=== PATIENT | female | born 1970 | race Caucasian/White ===

== ENCOUNTER 2020-12-05 10:08 | Outpatient (REF) | payer MEDICAID, SELFPAY ==
--- NOTE | ~2020-12-05 | MM_ITS ---
EXAMINATION: MM SCREENING DIGITAL BREAST TOMOSYNTHESIS, BILATERAL CLINICAL INFORMATION: Screening. Asymptomatic. The lifetime risk of breast cancer based on the Tyrer-Cuzick Model is 7%. COMPARISON: Mammography: 08/06/2018 TECHNIQUE: Digital breast tomosynthesis is performed in both the craniocaudal and mediolateral oblique views along with computer-aided detection (CAD). Synthesized 2D images are generated from the tomosynthesis. Additional left CC view is provided. FINDINGS: There are scattered areas of fibroglandular density (ACR BI-RADS breast composition Category b). Breast tissue composition borders on predominantly fatty. Background stromal markings are stable. There is biopsy clip marker again noted mid upper outer right breast. The axilla and skin contours are unremarkable. No significant changes. MM/MM tomosynthesis screening BI IMPRESSION: No mammographic evidence of malignancy. ASSESSMENT: BI-RADS 1: Negative RECOMMENDATION: Routine annual mammography screening. This patient's information was entered into a reminder system with a target due date for their next mammogram.
== END 2020-12-05 10:09 | disposition home or self-care (01) ==
LOC: HO.MAMMO 10:08
PROVIDERS: Visit Provider Internal Medicine
DX: Z12.31 Encounter for screening mammogram for malignant neoplasm of breast (principal)
CPT/HCPCS: 77063; 77067

== ENCOUNTER 2021-03-20 07:16 | Outpatient (REF) | payer MEDICAID, SELFPAY ==
--- NOTE | ~2021-03-20 | XR_ITS ---
EXAMINATION: XR WRIST, LEFT CLINICAL INFORMATION: Left wrist pain. COMPARISON: Left hand and wrist radiographs dated 07/09/2019. TECHNIQUE: PA, lateral, and oblique views of the left wrist. FINDINGS: The bones and soft tissues are normal. No fracture. Alignment is anatomic with normal joint spaces. No erosions or abnormal soft tissue calcifications. XR/XR wrist LT min 3V IMPRESSION: Unremarkable examination.
== END 2021-03-20 07:17 | disposition home or self-care (01) ==
LOC: HO.HOSX 07:16
PROVIDERS: Visit Provider Physician Assistant
DX: G56.03 Carpal tunnel syndrome, bilateral upper limbs (principal)
CPT/HCPCS: 73110; 99202

== ENCOUNTER 2021-05-31 10:01 | Outpatient (REF) | payer MEDICAID, SELFPAY ==
--- NOTE | 2021-05-31 10:00 | EMG_ITS ---
HISTORY OF PRESENT ILLNESS: Michelle Eisenberg is a 50-year-old woman with 2-year history of bilateral upper extremity pain, numbness, and tingling. PHYSICAL EXAMINATION: She is alert, oriented with normal intellectual functions. Cranial nerves II through XII are normal. Muscle tone and strength are normal in all 4 extremities. Deep tendon reflexes symmetrical, 2+. No Tinel or Phalen sign. IMPRESSION: Rule out carpal tunnel syndrome. Nerve conduction EMG study: Mild carpal tunnel syndrome bilaterally, slightly worse on the left. Normal EMG of the left C5-T1 innervated muscles. MD АНДРЕЙ Payan/SHIVANI / [id number]
== END 2021-05-31 10:02 | disposition home or self-care (01) ==
LOC: HO.NEURO 10:01
PROVIDERS: PCP Internal Medicine; Visit Provider Physician Assistant
DX: G56.03 Carpal tunnel syndrome, bilateral upper limbs (principal)
CPT/HCPCS: 95885; 95913

== ENCOUNTER → 2021-07-11 11:14 | Outpatient (BNVA) | payer MEDICAID, SELFPAY | PROVIDERS: Visit Provider Physician Assistant | DX: G56.03 Carpal tunnel syndrome, bilateral upper limbs (principal) | CPT/HCPCS: 99202 ==

== ENCOUNTER → 2021-07-25 12:04 | Outpatient (BNVA) | payer MEDICAID, SELFPAY | PROVIDERS: Visit Provider Orthopaedic Surgery | DX: G56.03 Carpal tunnel syndrome, bilateral upper limbs (principal) | CPT/HCPCS: 99202 ==

== ENCOUNTER 2021-08-17 10:43 | Day surgery (SDC) | payer MEDICAID, SELFPAY ==
[2021-08-16 08:03] VITALS: BMI 29.0
--- NOTE | 2021-08-17 10:22 | W.PM.OPN ---
Operative Note Operative Note Date of Service: 08/17/21 Narrative: Preop diagnosis: 1. right Carpal tunnel syndrome Postop diagnosis: same Procedure: 1. right Carpal tunnel release Surgeon: Delores Franz MD Anesthesia: local block using 1% lidocaine with epinephrine Findings: Thickened transverse carpal ligament. EBL: Less than 5 mL Specimens: None Complications: None Disposition: Brought to recovery room in stable condition Plan: Follow-up for 10-14 days for wound check and suture removal Indications: The patient is 51 years old, with right carpal tunnel syndrome that has been unresponsive to nonoperative management. The risks and benefits of operative treatment including but not limited to risk of damage to blood vessels, nerves, tendons, infection, persistent pain, persistent symptoms, or possible need for additional surgery were discussed with the patient and the patient wishes to proceed with surgery. Procedure: Once consent was obtained a local block was performed using a combination of 1% lidocaine with epinephrine. The patient was then brought back to the operating suite and placed on the operative table in supine position. A tourniquet was applied to the proximal aspect of the right upper extremity and the limb was prepped and draped in a standard surgical fashion. Once assured that we had a good block, a 1.5 cm longitudinal incision was made centered over the carpal tunnel. The incision was made through the skin to the subcutaneous tissues using a #15 blade. Dissection was made down to the level of the transverse carpal ligament with care being taken to protect the palmar cutaneous nerve. Once the transverse carpal ligament was clearly visualized, a longitudinal incision was made in the transverse carpal ligament 1st using a #15 blade, then using tenotomy scissors under direct visualization. Care was taken to look for and protect the motor branch of the median nerve when seen in this area. Once satisfied with our carpal tunnel release the wound was copiously irrigated with normal saline and hemostasis was obtained with a brief period of local pressure. The skin edges were reapproximated with some 5.0 nylon suture material and a sterile dressing was applied. The patient appears to have tolerated the procedure well and with no complications. All digits were well vascularized at the conclusion of the case.
[2021-08-17 10:44] VITALS: BP 139/72; PULSE 87; RESP 16; TEMP 36.9; O2SAT 94
[2021-08-17 13:10] VITALS: BP 143/83; PULSE 75; RESP 18; TEMP 36.7; O2SAT 96
--- NOTE | 2021-08-17 13:19 | MHC.SHP ---
Pre-Procedural Eval Section A Date of Service: 08/17/21 The patient is an INPATIENT: No Changes since office visit: No Cold of Flu in the past 2 weeks, No New Medical Problems, No Changes in Medication and No Patient answered all questions The History & Physical has been completed within 30 days and I have reviewed it.: Yes Section B Chief Complaint: carpal tunnel Allergies: Allergies Allergy/AdvReac Type Severity Reaction Status Date / Time No Known Allergies Allergy Verified 07/25/21 12:21 [No Known Allergies*] Plan I have reviewed the history and physical and performed a pertinent physical examination on my patient. No changes have occurred unless specified.
== END 2021-08-17 13:28 | disposition home or self-care (01) ==
PROVIDERS: PCP Internal Medicine; Visit Provider Orthopaedic Surgery
PROC: (CPT 64721; principal; 2021-08-17 12:20)
DX: G56.01 Carpal tunnel syndrome, right upper limb (principal); M79.641 Pain in right hand; R20.0 Anesthesia of skin; M79.7 Fibromyalgia; M19.90 Unspecified osteoarthritis, unspecified site; E11.9 Type 2 diabetes mellitus without complications; Z79.84 Long term (current) use of oral hypoglycemic drugs
CPT/HCPCS: 64721

== ENCOUNTER 2021-08-28 08:51 | Outpatient (REF) | payer MEDICAID, SELFPAY ==
[2021-08-28 10:40] LABS: Hematocrit 39.6 % (37.0-47.0); Hemoglobin 12.7 g/dl (12.0-16.0); Mean Corpuscular HGB Conc 32.1 g/dl (31.0-35.0); Mean Corpuscular Hemoglobin 28.9 pg (27.0-33.0); Platelet Count 299 X10*3/uL (160-400); Red Cell Distribution Width 13.1 % (11.0-16.0); White Blood Count 6.1 X10*3/uL (4.8-10.8)
[2021-08-28 11:03] LABS: Alanine Aminotransferase 28 U/L (0-31); Albumin Level 4.4 g/dL (3.5-5.0); Alkaline Phosphatase 91 U/L (39-117); Anion Gap 9 (12-20); Aspartate Amino Transferase 16 U/L (5-31); Bilirubin Total 0.3 mg/dL (0.0-1.0); Blood Urea Nitrogen 14 mg/dL (9-16); Calcium 10.2 mg/dL (8.4-10.2); Carbon Dioxide 33 mmol/L (22-29); Chloride 103 mmol/L (96-108); Estimated Glomerular Filt Rate > 60; Glucose Random 77 mg/dL (60-115); Potassium 4.3 mmol/L (3.3-5.1); Sodium 141 mmol/L (135-145); Total Protein 7.6 g/dL (6.5-8.0)
== END 2021-08-28 08:52 | disposition home or self-care (01) ==
LOC: HO.LAB 08:51
PROVIDERS: PCP Internal Medicine; Referring Provider Internal Medicine; Visit Provider Nurse Practitioner Family
DX: Z01.818 Encounter for other preprocedural examination (principal); K21.9 Gastro-esophageal reflux disease without esophagitis
CPT/HCPCS: 36415; 80053; 85027; 99202

== ENCOUNTER → 2021-08-30 12:40 | Outpatient (BNVA) | payer MEDICAID, SELFPAY | PROVIDERS: PCP Internal Medicine; Visit Provider Orthopaedic Surgery | DX: Z47.89 Encounter for other orthopedic aftercare (principal); G56.02 Carpal tunnel syndrome, left upper limb; Z87.39 Personal history of other diseases of the musculoskeletal system and connective tissue | CPT/HCPCS: 99212 ==

== ENCOUNTER 2021-10-31 08:54 | Outpatient (REF) | payer MEDICAID, SELFPAY ==
--- NOTE | ~2021-10-31 | XR_ITS ---
EXAMINATION: XR WRIST, LEFT CLINICAL INFORMATION: Pain. COMPARISON: Previous x-ray most recent March 2021. TECHNIQUE: PA, lateral, and oblique views of the left wrist. FINDINGS: Bone alignment is normal. No fracture or dislocation is seen. Joint spaces are normal. There is question of a small osteophyte projecting over the dorsal distal radius seen on the lateral view. Soft tissues are otherwise unremarkable. XR/XR wrist LT min 3V IMPRESSION: Question small osteophyte at the dorsal distal radius seen on the lateral view only. Otherwise unremarkable exam.
== END 2021-10-31 08:55 | disposition home or self-care (01) ==
LOC: HO.HOSX 08:54
PROVIDERS: PCP Internal Medicine; Visit Provider Orthopaedic Surgery
DX: G56.03 Carpal tunnel syndrome, bilateral upper limbs (principal); S52.502A Unspecified fracture of the lower end of left radius, initial encounter for closed fracture; X58.XXXA Exposure to other specified factors, initial encounter; Y93.9 Activity, unspecified; Y92.9 Unspecified place or not applicable; Y99.9 Unspecified external cause status
CPT/HCPCS: 25600; 73110; 99212

== ENCOUNTER 2021-11-22 08:21 | Outpatient (REF) | payer MEDICAID, SELFPAY ==
--- NOTE | ~2021-11-22 | XR_ITS ---
EXAMINATION: XR WRIST, LEFT CLINICAL INFORMATION: Pain. COMPARISON: 10/31/2021 TECHNIQUE: PA, lateral, and oblique views of the left wrist. FINDINGS: There is degeneration here. Degenerative change at the articulation of the radius with the proximal carpal row. There is no acute bony erosion. There is no evidence for osteopenia. Alignment is felt to be within normal limits. Mild negative ulnar variance is noted. There is mixed sclerotic appearance to the radial styloid. This is felt to be increasing and ongoing from previous exam. This could represent stress injury or a healing fracture. XR/XR wrist LT min 3V IMPRESSION: This exam is showing some sclerotic change with possible underlying lucency involving the radial styloid. This sclerosis is felt to be increasing from previous exam. This may represent a healing fracture. Correlation needs to be made clinically. Stress injury or other abnormality, such as an underlying lesion, cannot be excluded. If further evaluation is warranted, recommendation is MR of the wrist for further evaluation. Otherwise degenerative changes.
== END 2021-11-22 08:22 | disposition home or self-care (01) ==
LOC: HO.HOSX 08:21
PROVIDERS: Visit Provider Orthopaedic Surgery
DX: S52.502A Unspecified fracture of the lower end of left radius, initial encounter for closed fracture (principal); G56.02 Carpal tunnel syndrome, left upper limb
CPT/HCPCS: 73110; 99212

== ENCOUNTER 2021-12-25 10:48 | Day surgery (SDC) | payer MEDICAID, SELFPAY ==
[2021-12-19 13:53] VITALS: BMI 29.0
--- NOTE | 2021-12-22 10:36 | HO.ANESPROP2 ---
Documented by User: Debra Moya NP 12/22/21 10:37 HPI - Anesthesia Eval Consult details Narrative: 51yo F for Upper Endoscopy and Colonoscopy PMF Active Problems Active Problems: All Active Problems (Updated 12/19/21 @ 13:50 by Breann Uribe RN) Carpal tunnel syndrome, bilateral (Acute) GERD (gastroesophageal reflux disease) (Acute) Closed fracture of left distal radius (Acute) Carpal tunnel syndrome of left wrist (Acute) Past Medical History Medical History (Updated 12/19/21 @ 13:50 by Breann Uribe RN) Arthritis Diabetes Elevated cholesterol Fibromyalgia HTN (hypertension) Family History Family History Mother Colon cancer Father Colon cancer Surgical History Surgical History (Updated 12/19/21 @ 13:47 by Breann Uribe RN) History of History of carpal tunnel surgery of right wrist Social History Social History (Updated 12/19/21 @ 13:50 by Breann Uribe RN) Household Members: Spouse Advance Directives: No Advance Directives Information Provided: Yes Current occupational status: disabled Current occupation: rt hand Meds Allergies Allergy/AdvReac Type Severity Reaction Status Date / Time No Known Allergies Allergy Verified 11/22/21 09:02 [No Known Allergies*] Home Medications Medication Instructions Recorded Confirmed Last Taken Type amitriptyline 50 mg tablet 50 mg PO BEDTIME 03/20/21 12/19/21 Unknown History amlodipine 10 mg tablet 10 mg PO DAILY 03/20/21 12/19/21 Unknown History aspirin 81 mg tablet,delayed 81 mg PO DAILY 03/20/21 12/19/21 Unknown History release cetirizine 10 mg tablet 10 mg PO DAILY PRN Allergy Symptoms 03/20/21 12/19/21 Unknown History diclofenac sodium 1 % topical gel 2 g topical QID 03/20/21 12/19/21 Unknown History (Arthritis Pain (diclofenac)) metformin 1,000 mg tablet 1,000 mg PO BID 03/20/21 12/19/21 Unknown History rosuvastatin 10 mg tablet (Crestor) 10 mg PO DAILY 03/20/21 12/19/21 Unknown History trazodone 100 mg tablet 100 mg PO DAILY 03/20/21 12/19/21 Unknown History zolpidem 10 mg tablet (Ambien) 10 mg PO BEDTIME PRN Insomnia 03/20/21 12/19/21 Unknown History omeprazole 20 mg capsule,delayed 20 mg PO DAILY 08/28/21 12/19/21 Unknown History release Exam Exam Date and Time: December 22, 2021 1036 Height,Weight and Vital Signs: Height 5 ft 1 in Weight 69.853 kg Pertinent Lab Results Pertinent Lab Results: Laboratory Tests 08/28/21 08/28/21 10:13 10:13 WBC 6.1 Hgb 12.7 Hct 39.6 Plt Count 299 Sodium 141 Potassium 4.3 Chloride 103 Carbon Dioxide 33 H BUN 14 Creatinine 0.81 Assessment and Plan Assessment Anesthesia Assessment: Chart Reviewed Documented by User: Ethel Ricardo MD 12/25/21 11:06 [facility] Past Medical History Medical History (Updated 12/19/21 @ 13:50 by Breann Uribe RN) Arthritis Diabetes Elevated cholesterol Fibromyalgia HTN (hypertension) Family History Family History Mother Colon cancer Father Colon cancer Family history of problems with anesthesia: No Surgical History Surgical History (Updated 12/19/21 @ 13:47 by Breann Uribe RN) History of History of carpal tunnel surgery of right wrist History of Problems with Anesthesia: No Social History Social History (Updated 12/19/21 @ 13:50 by Breann Uribe RN) Household Members: Spouse Advance Directives: No Advance Directives Information Provided: Yes Current occupational status: disabled Current occupation: rt hand Meds Allergies Allergy/AdvReac Type Severity Reaction Status Date / Time No Known Allergies Allergy Verified 11/22/21 09:02 [No Known Allergies*] Home Medications Medication Instructions Recorded Confirmed Last Taken Type amitriptyline 50 mg tablet 50 mg PO BEDTIME 03/20/21 12/19/21 Unknown History amlodipine 10 mg tablet 10 mg PO DAILY 03/20/21 12/19/21 Unknown History aspirin 81 mg tablet,delayed 81 mg PO DAILY 03/20/21 12/19/21 Unknown History release cetirizine 10 mg tablet 10 mg PO DAILY PRN Allergy Symptoms 03/20/21 12/19/21 Unknown History diclofenac sodium 1 % topical gel 2 g topical QID 03/20/21 12/19/21 Unknown History (Arthritis Pain (diclofenac)) metformin 1,000 mg tablet 1,000 mg PO BID 03/20/21 12/19/21 Unknown History rosuvastatin 10 mg tablet (Crestor) 10 mg PO DAILY 03/20/21 12/19/21 Unknown History trazodone 100 mg tablet 100 mg PO DAILY 03/20/21 12/19/21 Unknown History zolpidem 10 mg tablet (Ambien) 10 mg PO BEDTIME PRN Insomnia 03/20/21 12/19/21 Unknown History omeprazole 20 mg capsule,delayed 20 mg PO DAILY 08/28/21 12/19/21 Unknown History release Exam Airway Mallampati Class: II (Missing 2) TM Dist: >3cm Neck ROM: Full Heart: rrr Lungs: cta Assessment and Plan Assessment Anesthesia Assessment: Anesthesia Plan Discussed Final Anesthetic Review Family History of Problems with Anesthesia: No History of Problems with Anesthesia: No NPO: Yes ASA Class: II Final Preanesthetic Review: No Changes in Pt Med Stat, Meds/Allgs Chart Reviewed and Consent Obtained/Reviewed Patient Risk: Intermediate Procedure Risk: Intermediate Anesthetic Plan Anesthetic Plan: MAC: Disposition: Standard PACU
[2021-12-25 11:04] VITALS: BMI 29.2
[2021-12-25 11:06] LABS: Glucose, Whole Blood 95 mg/dL (60-115)
[2021-12-25] MEDS: Lactated Ringers 1,000 ML 100 ML IVCONT (11:26)
--- NOTE | 2021-12-25 12:16 | MHC.SHP ---
Pre-Procedural Eval Section A Date of Service: 12/25/21 The patient is an INPATIENT: No The History & Physical has been completed within 30 days and I have reviewed it.: No Section B Chief Complaint: screening,reflux Details of Present Illness: Colon cancer screening, GERD Relevant Family History (Specify if Yes): Yes Relevant Social History: None Present Medications: see Short Stay Collaborative assessment Medical History: Significant History (Arthritis Fibromyalgia GERD (gastroesophageal reflux disease)) History of Previous Operations: Relevant previous surgery/procedure and date(s) (History of ) Allergies: Allergies Allergy/AdvReac Type Severity Reaction Status Date / Time shellfish derived Allergy Anaphylaxis Verified 12/25/21 11:14 Review of Systems Sugical H&P ROS: Negative: Constitution, Cardiovascular, Respiratory and Gastrointestinal Exam Surgical H&P Exam: Normal: Heart, Normal: Lungs, Normal: Extremities and Normal: Abdomen Plan Diagnosis/Plan: Unchanged I have reviewed the history and physical and performed a pertinent physical examination on my patient. No changes have occurred unless specified.
--- NOTE | 2021-12-25 12:17 | P.BOP_ITS ---
Brief Operative Note Date of Service: 12/25/21 Pre-op diagnosis: Colon cancer screen, family history of colon and stomach cancer, GERD, diarrhea alternating with constipation Post-op diagnosis: other (GERD, gastritis, diverticulosis, hemorrhoids) Procedure: FLEXIBLE TRANSORAL UPPER GASTROINTESTINAL ENDOSCOPY WITH BIOPSIES AND COLONOSCOPY TILL CECUM WITH BIOPSIES UPPER ENDOSCOPY Consent: Indications for the procedure and potential complications of bleeding, perforation, reaction to medications and missed diagnosis were discussed with the patient and informed consent was obtained. Instrument: Olympus GIF H 190 mid size upper endoscope Monitoring: Vital signs and clinical assessment, continuous EKG monitoring, Pulse oximetry, Carbon Dioxide monitoring and blood pressure monitoring were done throughout the procedure. Procedure: The patient was placed in the left lateral decubitis position and pre-procedure medications were administered and a bite block was placed. The endoscope was inserted into the mouth and advanced under direct vision to the third part of duodenum. A careful inspection was made as the upper endoscope was withdrawn including a retroflexed examination of the proximal stomach; Findings and interventions are described below. Findings: Larynx: Normal Esophagus: GE junction at 34 cms, small hiatal hernia 34 to 35 cms. A single 1 cms healing erosion at the GE junction. Stomach: Mild gastric erythema. Biopsies were obtained. Grade 2 flap valve on retroflexed examination of the cardia. Duodenum: Normal bulb and descending duodenum. Biopsies were obtained to to check for celiac sprue. Intervention: Biopsies as noted above COLONOSCOPY PROCEDURE NOTE Consent: Indications for the procedure and potential complications of bleeding, perforation, reaction to medications and missed diagnosis were discussed with the patient and informed consent was obtained. Instrument: Olympus PCF H 190 L variable stiffness pediatric colonoscope Monitoring: Vital signs and clinical assessment, intermittent blood pressure monitoring, continuous EKG monitoring, Pulse oximetry and Carbon Dioxide monitoring were done throughout the procedure. Colon withdrawl time was 30 minutes. Procedure: The patient was placed in the left lateral decubitis position and pre-procedure medications were administered. After a digital rectal examination of the ano-rectum, the video colonoscope was inserted into the rectum and advanced through the colon to the cecum. The colonoscope was slowly withdrawn in a retrograde panoramic fashion and the colon mucosa was carefully examined including a retroflexed view of the rectum. Findings and interventions are described below. Procedure Difficulty: : Without difficulty Findings: Terminal Ileum: Not evaluated Cecum: Normal Ascending Colon: Normal Transverse Colon: Normal Descending Colon: Normal Sigmoid Colon: Moderate diverticulosis Rectum: Normal Ano-rectum: Moderate internal hemorrhoids Colon preparation: Good after copious irrigation (pt took some chicken noodle soup yesterday evening) Impression and Post Procedure Diagnosis: Endoscopy Findings: ESOPHAGUS: small hiatal hernia 34 to 35 cms. A single 1 cms healing erosion at the GE junction. STOMACH: Mild gastritis DUODENUM: Normal - biopsied to check for celiac sprue Colonoscopy Findings: No polyps were detected. Random biopsies were obtained from the right colon to check for microscopic colitis Moderate diverticulosis seen in the sigmoid colon Moderate hemorrhoids on retroflexed exam. Plan: Await pathology results Patient has an appointment on 01/08/22 in the GI Clinic with Marleny Aguillon FNP- BC. Repeat Colonoscopy in 5 years due to positive family hx of colon cancer. (GA for future colonoscopies since pt kept moving during the procedure and had to be held down by the RN and surgical orderly) Above findings were reviewed with the patient and diverticulosis handout was given in the discharge area Surgeon: New Nicole MD Anesthesia: MAC (Dr Ruiz) Was an Support Group Manager used for this Procedure?: Yes Support Group Manager: Yancy Chandra Estimated blood loss (mL): 0 Pathology: other (A. small bowel bxs, R/O celiac B. gastric antrum bxs, R/O H. pylori C. right colon bxs, R/O microscopic colitis) Condition: stable Disposition: PACU
--- NOTE | 2021-12-25 12:18 | P.OP_ITS ---
Operative Note Operative Note Date of Service: 12/25/21 Narrative: Pre-op diagnosis: Colon cancer screen, family history of colon and stomach cancer, GERD, diarrhea alternating with constipation Post-op diagnosis:?other (GERD, gastritis, diverticulosis, hemorrhoids) Procedure: FLEXIBLE TRANSORAL UPPER GASTROINTESTINAL ENDOSCOPY WITH BIOPSIES AND COLONOSCOPY TILL CECUM WITH BIOPSIES UPPER ENDOSCOPY Consent:?Indications for the procedure and potential complications of bleeding, perforation, reaction to medications and missed diagnosis were discussed with the patient and informed consent was obtained. Instrument:?Olympus GIF H 190 mid size upper endoscope Monitoring: Vital signs and clinical assessment, continuous EKG monitoring, Pulse oximetry, Carbon Dioxide monitoring and blood pressure monitoring were done throughout the procedure. Procedure:?The patient was placed in the left lateral decubitis position and pre-procedure medications were administered and a bite block was placed. The endoscope was inserted into the mouth and advanced under direct vision to the third part of duodenum. A careful inspection was made as the upper endoscope was withdrawn including a retroflexed examination of the proximal stomach; Findings and interventions are described below. Findings: Larynx:? Normal Esophagus:?GE junction at 34 cms, small hiatal hernia 34 to 35 cms. A single 1 cms healing erosion at the GE junction. Stomach:?Mild gastric erythema. Biopsies were obtained. Grade 2 flap valve on retroflexed examination of the cardia. Duodenum:?Normal bulb and descending duodenum. Biopsies were obtained to to check for celiac sprue. Intervention:?Biopsies as noted above COLONOSCOPY PROCEDURE NOTE Consent:?Indications for the procedure and potential complications of bleeding, perforation, reaction to medications and missed diagnosis were discussed with the patient and informed consent was obtained. Instrument:?Olympus PCF H 190 L variable stiffness pediatric colonoscope Monitoring:?Vital signs and clinical assessment, intermittent blood pressure monitoring, continuous EKG monitoring, Pulse oximetry and Carbon Dioxide monitoring were done throughout the procedure. Colon withdrawl time was 30 minutes. Procedure:?The patient was placed in the left lateral decubitis position and pre-procedure medications were administered. After a digital rectal examination of the ano-rectum, the video colonoscope was inserted into the rectum and advanced through the colon to the cecum. The colonoscope was slowly withdrawn in a retrograde panoramic fashion and the colon mucosa was carefully examined including a retroflexed view of the rectum. Findings and interventions are described below. Procedure Difficulty:?: Without difficulty Findings: Terminal Ileum: Not evaluated Cecum:? Normal Ascending Colon:??Normal Transverse Colon:??Normal Descending Colon:? Normal Sigmoid Colon:??Moderate diverticulosis Rectum:??Normal Ano-rectum:??Moderate internal hemorrhoids Colon preparation:? Good? after copious irrigation (pt took some chicken noodle soup yesterday evening) Impression and Post Procedure Diagnosis: Endoscopy Findings: ESOPHAGUS:?small hiatal hernia 34 to 35 cms. A single 1 cms healing erosion at the GE junction. STOMACH: Mild gastritis DUODENUM: Normal - biopsied to check for celiac sprue Colonoscopy Findings: No polyps were detected.? Random biopsies were obtained from the right colon to check for microscopic colitis Moderate diverticulosis seen in the sigmoid colon Moderate hemorrhoids on retroflexed exam. Plan: Await pathology results Patient has an appointment on 01/08/22 in the GI Clinic with Marleny Aguillon FNP- BC. Repeat Colonoscopy in 5 years due to positive family hx of colon cancer. Above findings were reviewed with the patient and diverticulosis handout was given in the discharge area Surgeon: New Nicole MD Anesthesia:?MAC (Dr Ruiz) Was an Mine Foreman used for this Procedure?:?Yes Mine Foreman:?Yancy Chandra Estimated blood loss (mL):?0 Pathology:?other (A. small bowel bxs, R/O celiac? B. gastric antrum bxs, R/O H. pylori? C. right colon bxs, R/O microscopic colitis) Condition:?stable Disposition:?PACU
[2021-12-25 13:03] VITALS: BP 124/76; PULSE 85; RESP 16; TEMP 36.6; O2SAT 96
[2021-12-25 13:18] VITALS: BP 148/82; PULSE 74; RESP 18; TEMP 36.7; O2SAT 99
== END 2021-12-25 14:05 | disposition home or self-care (01) ==
PROVIDERS: PCP Internal Medicine; Visit Provider Internal Medicine Gastroenterology
PROC: (CPT 45380; principal; 2021-12-25 11:50)
DX: Z12.11 Encounter for screening for malignant neoplasm of colon (principal); Z80.0 Family history of malignant neoplasm of digestive organs; K57.30 Diverticulosis of large intestine without perforation or abscess without bleeding; K64.8 Other hemorrhoids; R19.7 Diarrhea, unspecified; K59.00 Constipation, unspecified; K21.9 Gastro-esophageal reflux disease without esophagitis; K29.50 Unspecified chronic gastritis without bleeding; I10 Essential (primary) hypertension; E11.9 Type 2 diabetes mellitus without complications; M79.7 Fibromyalgia; M19.90 Unspecified osteoarthritis, unspecified site; Z79.82 Long term (current) use of aspirin; Z79.84 Long term (current) use of oral hypoglycemic drugs; Z79.899 Other long term (current) drug therapy
CPT/HCPCS: 45380; 43239; 82947; 88305; 88342; J2250

== ENCOUNTER 2022-01-11 07:39 | Day surgery (SDC) | payer MEDICARE, SELFPAY ==
[2022-01-11 07:00] VITALS: BMI 29.0
[2022-01-11 08:03] VITALS: BP 165/89; PULSE 77; RESP 19; TEMP 36.1; O2SAT 98
[2022-01-11 10:26] VITALS: BP 168/92; PULSE 79; RESP 18; TEMP 36.2; O2SAT 99
--- NOTE | 2022-01-11 10:26 | MHC.SHP ---
Pre-Procedural Eval Section A Date of Service: 01/11/22 The patient is an INPATIENT: No Changes since office visit: No Cold of Flu in the past 2 weeks, No New Medical Problems, No Changes in Medication and No Patient answered all questions The History & Physical has been completed within 30 days and I have reviewed it.: Yes Section B Chief Complaint: CTS Allergies: Allergies Allergy/AdvReac Type Severity Reaction Status Date / Time shellfish derived Allergy Anaphylaxis Verified 12/25/21 11:14 Plan I have reviewed the history and physical and performed a pertinent physical examination on my patient. No changes have occurred unless specified.
--- NOTE | 2022-01-11 10:27 | W.PM.OPN ---
Operative Note Operative Note Date of Service: 01/11/22 Narrative: Preop diagnosis: 1. left Carpal tunnel syndrome Postop diagnosis: same Procedure: 1. left Carpal tunnel release Surgeon: Delores Franz MD Anesthesia: local block using 1% lidocaine with epinephrine Findings: Thickened transverse carpal ligament. EBL: Less than 5 mL Specimens: None Complications: None Disposition: Brought to recovery room in stable condition Plan: Follow-up for 10-14 days for wound check and suture removal Indications: The patient is 51 years old, with left carpal tunnel syndrome that has been unresponsive to nonoperative management. The risks and benefits of operative treatment including but not limited to risk of damage to blood vessels, nerves, tendons, infection, persistent pain, persistent symptoms, or possible need for additional surgery were discussed with the patient and the patient wishes to proceed with surgery. Procedure: Once consent was obtained a local block was performed using a combination of 1% lidocaine with epinephrine. The patient was then brought back to the operating suite and placed on the operative table in supine position. A tourniquet was applied to the proximal aspect of the left upper extremity and the limb was prepped and draped in a standard surgical fashion. Once assured that we had a good block, a 1.5 cm longitudinal incision was made centered over the carpal tunnel. The incision was made through the skin to the subcutaneous tissues using a #15 blade. Dissection was made down to the level of the transverse carpal ligament with care being taken to protect the palmar cutaneous nerve. Once the transverse carpal ligament was clearly visualized, a longitudinal incision was made in the transverse carpal ligament 1st using a #15 blade, then using tenotomy scissors under direct visualization. Care was taken to look for and protect the motor branch of the median nerve when seen in this area. Once satisfied with our carpal tunnel release the wound was copiously irrigated with normal saline and hemostasis was obtained with a brief period of local pressure. The skin edges were reapproximated with some 5.0 nylon suture material and a sterile dressing was applied. The patient appears to have tolerated the procedure well and with no complications. All digits were well vascularized at the conclusion of the case.
== END 2022-01-11 10:39 | disposition home or self-care (01) ==
PROVIDERS: PCP Internal Medicine; Visit Provider Orthopaedic Surgery
PROC: (CPT 64721; principal; 2022-01-11 09:30)
DX: G56.02 Carpal tunnel syndrome, left upper limb (principal); M25.532 Pain in left wrist; R20.0 Anesthesia of skin; M79.7 Fibromyalgia; M19.90 Unspecified osteoarthritis, unspecified site; K21.9 Gastro-esophageal reflux disease without esophagitis; R73.03 Prediabetes
CPT/HCPCS: 64721; J0171

== ENCOUNTER → 2022-01-23 09:36 | Outpatient (BNVA) | payer MEDICARE, SELFPAY | PROVIDERS: PCP Internal Medicine; Visit Provider Nurse Practitioner Family | DX: K21.9 Gastro-esophageal reflux disease without esophagitis (principal); K64.9 Unspecified hemorrhoids; K59.04 Chronic idiopathic constipation; K58.2 Mixed irritable bowel syndrome; Z98.890 Other specified postprocedural states | CPT/HCPCS: 99212 ==

== ENCOUNTER → 2022-03-06 08:56 | Outpatient (BNVA) | payer MEDICARE, SELFPAY | PROVIDERS: PCP Internal Medicine; Visit Provider Orthopaedic Surgery | DX: Z48.811 Encounter for surgical aftercare following surgery on the nervous system (principal); M65.4 Radial styloid tenosynovitis [de Quervain]; M65.312 Trigger thumb, left thumb; G56.01 Carpal tunnel syndrome, right upper limb; Z86.69 Personal history of other diseases of the nervous system and sense organs | CPT/HCPCS: 20550; 99212; J1020 ==

== ENCOUNTER 2022-04-15 12:33 | Emergency (ER) | payer MEDICARE, SELFPAY ==
--- NOTE | ~2022-04-15 | CT_ITS ---
EXAMINATION: CT HEAD WITHOUT CONTRAST CLINICAL INFORMATION: Hypertension. Headache. COMPARISON: 11/11/2018 TECHNIQUE: Contiguous axial imaging was performed from the skull base to vertex without intravenous administration of contrast. This CT examination was performed using dose optimization techniques as appropriate, variously including the following: *Automated exposure control *Adjustment of mA and/or kV according to patient size (this includes techniques or standardized protocols for targeted exams where dose is matched to indication/reason for exam; i.e. extremities or head) *Use of iterative reconstruction technique DLP: 582 mGy-cm FINDINGS: There is no evidence of acute intracranial hemorrhage or territorial infarction. No abnormal mass effect or midline shift is seen. Diallo to white matter differentiation is well preserved. No extra-axial fluid collections are identified. No hydrocephalus. No significant volume loss. There is no abnormal attenuation within the brain parenchyma. No acute osseous or soft tissue abnormality. Mucosal thickening throughout the right maxillary sinus. Paranasal sinuses and mastoid air cells are clear. CT/CT head/brain wo IV con IMPRESSION: No acute intracranial pathology.
[2022-04-15 12:35] VITALS: BP 227/128; PULSE 96; RESP 18; TEMP 36.6; O2SAT 100; BMI 32.4
--- NOTE | 2022-04-15 12:51 | ECG_ITS ---
Test Reason : hypertension Blood Pressure : / mmHG Vent. Rate : 085 BPM Atrial Rate : 085 BPM P-R Int : 146 ms QRS Dur : 100 ms QT Int : 390 ms P-R-T Axes : 040 -03 000 degrees QTc Int : 464 ms Normal sinus rhythm Incomplete right bundle branch block Minimal voltage criteria for LVH, may be normal variant ( R in aVL ) Borderline ECG No previous ECGs available Referred By: Berta Saldivar Electronically Signed By:JARED MICHAEL MD
--- NOTE | 2022-04-15 12:55 | ED_ITS ---
HPI - General Adult General Chief complaint: Recheck/Abnormal Lab/Rx Stated complaint: HBP Time Seen by Provider: 04/15/22 12:47 Source: patient Mode of arrival: ambulatory History of Present Illness HPI narrative: 51-year-old female with a past medical history of arthritis, diabetes, HLD, fibromyalgia, GERD, HTN, presenting to the ED complaining of elevated BP readings at home noted by visiting nurse today. States this is 1st time vis iting nurse came to home for insurance issues. Reports mild headache since this morning, denies be maximal at onset. Denies chest pain, shortness of breath, vision change/loss, numbness, tingling, dizziness or weakness at present. Took home prescribed antihypertensives this morning, unsure which medications. Denies recent medication changes or taking anticoagulation. Onset (ago): hour(s) Related Data Home Medications Medication Instructions Recorded Confirmed amitriptyline 50 mg tablet 50 mg PO BEDTIME 03/20/21 12/19/21 amlodipine 10 mg tablet 10 mg PO DAILY 03/20/21 12/25/21 aspirin 81 mg tablet,delayed 81 mg PO DAILY 03/20/21 12/25/21 release cetirizine 10 mg tablet 10 mg PO DAILY PRN Allergy Symptoms 03/20/21 12/19/21 diclofenac sodium 1 % topical gel 2 g topical QID 03/20/21 12/19/21 (Arthritis Pain (diclofenac)) metformin 1,000 mg tablet 1,000 mg PO BID 03/20/21 12/19/21 rosuvastatin 10 mg tablet (Crestor) 10 mg PO DAILY 03/20/21 12/19/21 trazodone 100 mg tablet 100 mg PO DAILY 03/20/21 12/19/21 zolpidem 10 mg tablet (Ambien) 10 mg PO BEDTIME PRN Insomnia 03/20/21 12/19/21 omeprazole 20 mg capsule,delayed 20 mg PO DAILY 08/28/21 12/19/21 release Previous Rx's Medication Instructions Recorded hydrocodone 5 mg-acetaminophen 325 1 tab PO Q4-6H PRN pain #5 tabs 08/17/21 mg tablet docusate sodium 100 mg capsule 100 mg PO BEDTIME #30 caps 12/13/21 sennosides 8.6 mg tablet (Natural 8.6 mg PO BEDTIME constipation 30 06/15/22 Senna Laxative) days #30 tabs hydrocodone 5 mg-acetaminophen 325 1 tab PO Q4-6H PRN pain #5 tabs 01/11/22 mg tablet Allergies Allergy/AdvReac Type Severity Reaction Status Date / Time shellfish derived Allergy Anaphylaxis Verified 03/06/22 09:05 Review of Systems Review of Systems: Constitutional: No Fever, No Chills, No Fatigue, No Malaise ENT/Mouth: No Ear Pain, No Nasal Congestion, No sore throat, No Rhinorrhea, No Swallowing Difficulty Eyes: No Eye Pain, No Swelling, No Redness, No Vision Changes Cardiovascular: No Chest Pain, No SOB, No Dyspnea on Exertion, No Orthopnea, No Edema, No Palpitations Respiratory: No Cough, No Sputum, No Dyspnea Gastrointestinal: No Nausea, No Vomiting, No Diarrhea, No Constipation, No Abdominal pain Genitourinary: No Dysuria, No Urinary Frequency, No Hematuria, No Urinary Incontinence/retention, No Flank Pain, No Urinary Flow Changes Musculoskeletal: No joint pain, No Myalgias, No Joint Swelling Skin: No Skin Lesions, No rash Neuro: No Weakness, No Numbness, No Paresthesias, No Loss of Consciousness, No Dizziness, + Headache Yes all other systems are reviewed and are negative Constitutional: Constitutional: Reports as per HPI Neurologic: Denies Abnormal speech present [facility] Past Medical History Attestation statement: The following information was validated with the patient. Medical History Arthritis Diabetes Elevated cholesterol Fibromyalgia GERD (gastroesophageal reflux disease) HTN (hypertension) Surgical History History of History of carpal tunnel surgery of right wrist History of esophagogastroduodenoscopy (EGD) Hx of colonoscopy Family History Family History Mother Colon cancer Father Colon cancer Social History Social History Household Members: Spouse Alcohol intake: former Patient Tobacco Use Status: Never used Tobacco Advance Directives: No Advance Directives Information Provided: No Patient : No Current occupational status: disabled Current occupation: rt hand Physical Exam ED Vital Signs: Vital Signs - 24 hr 04/15/22 12:35 04/15/22 13:59 04/15/22 14:47 Temperature 98 F 97.9 F Pulse Rate 96 88 81 Respiratory Rate 18 18 12 Blood Pressure 227/128 H 210/109 H 182/109 H Pulse Oximetry 100 100 98 Oxygen Delivery Method Room Air Room Air Room Air 04/15/22 15:16 Temperature Pulse Rate 89 Respiratory Rate 16 Blood Pressure 172/99 H Pulse Oximetry 98 Oxygen Delivery Method Room Air BMI result Body Mass Index 32.4 Const General: cooperative, healthy appearing, no acute distress, alert and awake Orientation/consciousness: patient oriented x3 Limitations: no limitations HENMT Head: Yes normal to inspection and Yes atraumatic Ears: hearing grossly normal bilaterally General nose exam: Normal external nose present Face and sinus: Yes normal facial exam Throat: Yes posterior oropharynx normal Eyes General: appearance normal, both eyes and all related structures Pupils: Equal, round and reactive pupils present EOM: EOMs intact bilaterally Neck Neck: Yes normal visual inspection, Yes no meningeal signs and Yes supple Resp Effort & Inspection: normal respiratory effort and no respiratory distress Auscultation: clear to auscultation bilaterally, no crackles, no rales, no rhonchi and no wheezes Cardio Rate: regular rate Heart sounds: S1 normal heart sound present and S2 normal heart sound present GI Inspection: Yes normal to inspection Palpation (GI): Soft to palpation, nontender, no guarding and not rigid Skin Rashes: no rashes Wounds: no wounds Neuro General: patient oriented x3, gait normal, tone normal, moves all extremities, no meningeal signs, no focal motor deficits and CN's II-XI intact bilaterally Cranial nerves: Yes CN's II-XII intact bilaterally and Yes Equal, round and reactive pupils present Cognition (Neuro): normal cognition Speech: No Abnormal speech present Gait exam (Neuro): Normal gait present Motor exam (neuro): 5/5 motor strength present throughout and Pronator motor function not present Extrem General: Yes normal to inspection and Yes no pedal edema Course Course Course Narrative: -only antihypertensive patient reported initially Amlodipine 10mg > case discussed with Dr. Beyer, will give 10mg of Lisinopril and 50mg of HCTZ -1419--upon pharmacy med reconciliation patient filled 1 month supply of Amlodipine, Hydralazine, HCTZ, Labetalol, and Losartan on 02/19 > patient unsure of medications, went vehicle was able to grab medication pack. *Confirmed patient is on 50mg of Hydralazine q.i.d., 50mg of HCTZ in the morning, 10mg of Amlodipine at night, 300mg of Labetalol b.i.d., and Losartan 100mg in the morning >> patient reports she takes so many medications sometimes forgets and will just skip that dosing & go on to the next dose > Symptoms are likely from noncompliance. Will give patient her afternoon dose of 50 mg of hydralazine at this time (admits to taking morning medications today) -1547--labs unremarkable. Troponin negative. Blood pressure improved to 172/[address] head/brain wo IV con IMPRESSION: No acute intracranial pathology. >> discussed with patient with campus coordinator importance of medication compliance and not missing/skipping any doses as likely cause of patient's hypertension. Stressed close PCP follow-up. Results discussed with patient including worrisome signs and symptoms and strict return precautions, and when to return to the emergency department. They verbalized understanding and feel safe for discharge at this time. Medical Decision Making MDM Narrative Medical decision making narrative: 51-year-old female with a past medical history of arthritis, diabetes, HLD, fibromyalgia, GERD, HTN, presenting to the ED complaining of elevated BP readings at home noted by visiting nurse today. On exam hypertensive initially 227/128, symptomatic with mild headache. No focal neuro deficits. Concern for hypertensive urgency/emergency vs ICH vs ACS vs medication noncompliance Plan: EKG, labs, head CT, p.o. antihypertensives, re-evaluate Medical Records Medical records reviewed: Yes I reviewed the patient's medical records. Lab Data Lab results reviewed: Yes I reviewed the patient's lab results. Result diagrams: 04/15/22 13:47 04/15/22 13:47 Labs: Lab Results 04/15/22 04/15/22 04/15/22 Range/Units 13:47 13:47 13:47 WBC 5.1 (4.8-10.8) X10*3/uL RBC 4.72 (4.20-5.50) X10*6/uL Hgb 13.5 (12.0-16.0) g/dl Hct 40.7 (37.0-47.0) % MCV 86.2 (80.0-98.0) fL MCH 28.6 (27.0-33.0) pg MCHC 33.2 (31.0-35.0) g/dl RDW 13.1 (11.0-16.0) % Plt Count 254 (160-400) X10*3/uL MPV 10.5 (9.4-12.3) fL Immature Gran % (Auto) 0.2 (0.0-0.4) % Neut % (Auto) 47.9 (45-73) % Lymph % (Auto) 43.1 H (20-40) % [place] % (Auto) 5.9 (2-11) % Eos % (Auto) 2.5 (0-4) % Baso % (Auto) 0.4 (0-2) % Lymph # (Auto) 2.2 (1.2-4.9) X10*3/uL [place] # (Auto) 0.3 (0.1-1.2) X10*3/uL Eos # (Auto) 0.1 (0.0-0.4) X10*3/uL Baso # (Auto) 0.0 (0.0-0.2) X10*3/uL Abs Immat Gran (auto) 0.01 (0.00-0.03) X10*3/uL Absolute Neuts (auto) 2.4 (2.0-8.3) x10*3/uL Absolute Nucleated RBC 0.000 (0.0-0.012) X10*3/uL Nucleated RBC % (auto) 0.0 (0.0-0.2) /100WBC PT 9.9 L (10.0-13.1) SEC INR 0.9 (0.9-1.1) Sodium 141 (135-145) mmol/L Potassium 3.8 (3.3-5.1) mmol/L Chloride 104 (96-108) mmol/L Carbon Dioxide 26 (22-29) mmol/L Anion Gap 15 (12-20) BUN 14 (9-16) mg/dL Creatinine 0.73 (0.5-1.4) mg/dL Estim Creat Clear Calc 95.5 Estimated GFR > 60 Random Glucose 103 (60-115) mg/dL Calcium 9.7 (8.4-10.2) mg/dL Magnesium 1.9 (1.6-2.6) mg/dL Total Bilirubin 0.4 (0.0-1.0) mg/dL Direct Bilirubin 0.2 (0.0-0.5) mg/dL AST 20 (5-31) U/L ALT 24 (0-31) U/L Alkaline Phosphatase 89 (39-117) U/L Troponin I High Sens (<3.5-17.0) ng/L Total Protein 7.5 (6.5-8.0) g/dL Albumin 4.6 (3.5-5.0) g/dL 04/15/22 Range/Units 13:47 WBC (4.8-10.8) X10*3/uL RBC (4.20-5.50) X10*6/uL Hgb (12.0-16.0) g/dl Hct (37.0-47.0) % MCV (80.0-98.0) fL MCH (27.0-33.0) pg MCHC (31.0-35.0) g/dl RDW (11.0-16.0) % Plt Count (160-400) X10*3/uL MPV (9.4-12.3) fL Immature Gran % (Auto) (0.0-0.4) % Neut % (Auto) (45-73) % Lymph % (Auto) (20-40) % [place] % (Auto) (2-11) % Eos % (Auto) (0-4) % Baso % (Auto) (0-2) % Lymph # (Auto) (1.2-4.9) X10*3/uL [place] # (Auto) (0.1-1.2) X10*3/uL Eos # (Auto) (0.0-0.4) X10*3/uL Baso # (Auto) (0.0-0.2) X10*3/uL Abs Immat Gran (auto) (0.00-0.03) X10*3/uL Absolute Neuts (auto) (2.0-8.3) x10*3/uL Absolute Nucleated RBC (0.0-0.012) X10*3/uL Nucleated RBC % (auto) (0.0-0.2) /100WBC PT (10.0-13.1) SEC INR (0.9-1.1) Sodium (135-145) mmol/L Potassium (3.3-5.1) mmol/L Chloride (96-108) mmol/L Carbon Dioxide (22-29) mmol/L Anion Gap (12-20) BUN (9-16) mg/dL Creatinine (0.5-1.4) mg/dL Estim Creat Clear Calc Estimated GFR Random Glucose (60-115) mg/dL Calcium (8.4-10.2) mg/dL Magnesium (1.6-2.6) mg/dL Total Bilirubin (0.0-1.0) mg/dL Direct Bilirubin (0.0-0.5) mg/dL AST (5-31) U/L ALT (0-31) U/L Alkaline Phosphatase (39-117) U/L Troponin I High Sens < 3.5 (<3.5-17.0) ng/L Total Protein (6.5-8.0) g/dL Albumin (3.5-5.0) g/dL Discharge Plan Discharge Clinical Impression: HTN (hypertension) Patient Disposition: Home, Self-Care Instructions: Hypertension (ED), Heart Healthy Diet (ED) Additional Instructions: Your blood work and head CT were unremarkable today. YOU NEED TO TAKE YOUR MEDICATIONS PRESCRIBED, DO NOT MISS ANY DOSES. SKIPPING/MISSING DOSES OF HER BLOOD PRESSURE MEDICATIONS PUT YOU AT RISK OF HEART ATTACK AND STROKE. Continue to closely monitor your blood pressure at home. If you develop chest pain, shortness of breath, headache, numbness, tingling, weakness return to the emergency department please have close follow-up with her doctor Sales an?lisis de nicola y la tomograf?a computarizada de la divya no tuvieron nada especial hoy. NECESITA ELIZABETH DARIA MEDICAMENTOS SEG?N LO RECETADO, NO OLVIDE NINGUNA DOSIS. OMITIR/PERDER DOSIS DE DARIA MEDICAMENTOS PARA LA PRESI?N ARTERIAL LO PONE EN RIESGO DE ATAQUE CARD?ACO Y ACV. Contin?e monitoreando de cerca sales presi?n arterial en casa. Si desarrolla dolor en el pecho, dificultad para respirar, dolor de divya, entumecimiento, hormigueo, debilidad, regrese al departamento de emergencias. por favor tenga un seguimiento cercano con sales m?dico Prescriptions: No Action docusate sodium 100 mg capsule 100 mg PO BEDTIME Qty: 30 3RF sennosides [Natural Senna Laxative] 8.6 mg tablet 8.6 mg PO BEDTIME 30 Days Qty: 30 3RF hydrocodone-acetaminophen 5-325 mg tablet 1 tab PO Q4-6H PRN (Reason: pain) Qty: 5 0RF hydrocodone-acetaminophen 5-325 mg tablet 1 tab PO Q4-6H PRN (Reason: pain) Qty: 5 0RF Rx Instructions: Partial Fill upon patient request. cetirizine 10 mg tablet 10 mg PO DAILY PRN (Reason: Allergy Symptoms) amlodipine 10 mg tablet 10 mg PO DAILY zolpidem [Ambien] 10 mg tablet 10 mg PO BEDTIME PRN (Reason: Insomnia) metformin 1,000 mg tablet 1,000 mg PO BID amitriptyline 50 mg tablet 50 mg PO BEDTIME aspirin 81 mg tablet,delayed release (DR/EC) 81 mg PO DAILY diclofenac sodium [Arthritis Pain (diclofenac)] 1 % gel 2 g topical QID Rx Instructions: apply to single elbow, wrist or hand; for hand includes palm/fingers/back of hand trazodone 100 mg tablet 100 mg PO DAILY rosuvastatin [Crestor] 10 mg tablet 10 mg PO DAILY omeprazole 20 mg capsule,delayed release(DR/EC) 20 mg PO DAILY Referrals: Physician,Nonstaff [Primary Care Provider] - 2 days Print Language: Yakut
[2022-04-15] MEDS: hydroCHLOROthiazide 50 MG TABLET PO (13:48)
[2022-04-15] MEDS: lisinopriL 10 MG TABLET PO (13:48)
[2022-04-15 13:55] LABS: MANUAL DIFF FLAG NO
[2022-04-15 13:56] LABS: Basophils Percent Auto 0.4 % (0-2); Eosinophils Absolute Auto 0.1 X10*3/uL (0.0-0.4); Eosinophils Percent Auto 2.5 % (0-4); Hematocrit 40.7 % (37.0-47.0); Hemoglobin 13.5 g/dl (12.0-16.0); Imm Gran Abs Auto 0.01 X10*3/uL (0.00-0.03); Imm Gran Pct Auto 0.2 % (0.0-0.4); Lymphocytes Absolute Auto 2.2 X10*3/uL (1.2-4.9); Lymphocytes Percent Auto 43.1 % (20-40); Mean Corpuscular HGB Conc 33.2 g/dl (31.0-35.0); Mean Corpuscular Hemoglobin 28.6 pg (27.0-33.0); Mean Corpuscular Volume 86.2 fL (80.0-98.0); Mean Platelet Volume 10.5 fL (9.4-12.3); Monocytes Absolute Auto 0.3 X10*3/uL (0.1-1.2); Monocytes Percent Auto 5.9 % (2-11); Neutrophils Absolute Auto 2.4 x10*3/uL (2.0-8.3); Neutrophils Percent Auto 47.9 % (45-73); Platelet Count 254 X10*3/uL (160-400); Red Blood Count 4.72 X10*6/uL (4.20-5.50); Red Cell Distribution Width 13.1 % (11.0-16.0); White Blood Count 5.1 X10*3/uL (4.8-10.8)
[2022-04-15 13:59] VITALS: BP 210/109; PULSE 88; RESP 18; TEMP 36.6; O2SAT 100
--- NOTE | 2022-04-15 14:00 | PC.NURSE ---
patient a/ox4 . pearrla . heart rate regular at 89 . lungs clear . breathing even and unlabored . skin pink warm and dry . abdomen soft , positive bowel sounds in all four quadrants . patient presented to Ed with high blood pressures that had been taken by [facility] . No c/o of any pain dizziness or Chest Pain . Patient has been medicated as per providers orders . patient is aware of plan of care .
[2022-04-15 14:01] LABS: INTERNATIONAL NORM RATIO 0.9 (0.9-1.1); Prothrombin Time 9.9 SEC (10.0-13.1)
[2022-04-15 14:19] LABS: Alanine Aminotransferase 24 U/L (0-31); Albumin Level 4.6 g/dL (3.5-5.0); Alkaline Phosphatase 89 U/L (39-117); Anion Gap 15 (12-20); Aspartate Amino Transferase 20 U/L (5-31); Bilirubin Direct 0.2 mg/dL (0.0-0.5); Bilirubin Total 0.4 mg/dL (0.0-1.0); Blood Urea Nitrogen 14 mg/dL (9-16); Calcium 9.7 mg/dL (8.4-10.2); Carbon Dioxide 26 mmol/L (22-29); Chloride 104 mmol/L (96-108); Creatinine Clr Calc Pharmacy 95.5; Estimated Glomerular Filt Rate > 60; Glucose Random 103 mg/dL (60-115); Magnesium 1.9 mg/dL (1.6-2.6); Potassium 3.8 mmol/L (3.3-5.1); Sodium 141 mmol/L (135-145); Total Protein 7.5 g/dL (6.5-8.0)
[2022-04-15 14:22] LABS: Troponin-I High Sensitivity < 3.5 ng/L (<3.5-17.0)
[2022-04-15 14:47] VITALS: BP 182/109; PULSE 81; RESP 12; O2SAT 98
[2022-04-15] MEDS: hydrALAZINE HCl 50 MG TABLET PO (15:12)
[2022-04-15 15:16] VITALS: BP 172/99; PULSE 89; RESP 16; O2SAT 98
[2022-04-15 16:08] VITALS: BP 141/85; PULSE 98; RESP 16; O2SAT 100
--- NOTE | 2022-04-15 16:08 | PC.NURSE ---
patient discharged with the use of medical delivery driver . patient a/ox4 . went over discharge instructions as ordered by provider . patient to follow up with primary care and [facility] .patient to return to ed if symptoms worsen . no questions at this time .
== END 2022-04-15 16:13 | disposition home or self-care (01) ==
PROVIDERS: Physician Assistant; Emergency Provider Emergency Medicine
DX: R79.89 Other specified abnormal findings of blood chemistry (principal); I10 Essential (primary) hypertension; R51.9 Headache, unspecified; Z79.899 Other long term (current) drug therapy
CPT/HCPCS: 36415; 70450; 80048; 80076; 83735; 84484; 85025; 85610; 93005; 99284

== ENCOUNTER 2022-07-03 09:00 | Outpatient (RCR) | payer MEDICARE, SELFPAY ==
--- NOTE | 2022-06-11 09:55 | MHC.PT.EP ---
[facility] [place] Office [place] Office [place] Office [address] [phone] F: [phone] F: [phone] F: [phone] F: [phone] Physical Therapy Plan of Care Date of Evaluation: Date of Surgery: Diagnosis: Suprapatellar Bursitis of L knee Assessment: Patient is a 51 year old R handed female who presents with s/s consistent with suprapatellar bursitis of L knee, L knee pain. She does not currently work and spends most of her time in her home. Patient past medical history is does include DM, anxiety and depression. Current impairments include pain, posture, ROM, strength, activity tolerance and functional mobility. Functional limitations include decreased ability to walk, stand, transfer, and negotiate stairs. Patient is motivated with good rehab potential. Skilled PT will address impairments and functional limitations in order to achieve goals. Frequency and Duration: The patient will be seen 2x/week for 5 weeks Short Term Goals: I with HEP - 2 weeks AROM 0-132 - 3 weeks Able to walk 5 minutes without giving out or increased pain - 3 weeks Long-Term Goals: LEFS 54/80 - 5 weeks Strength 4/5 grossly - 5 weeks Able to walk > 10 minute without pain or giving out - 5 weeks Treatment Plan: Modalities to reduce pain, spasms and effusion. Manual therapy to restore motion and function. Therapeutic exercise to improve strength and flexibility. Neuromuscular re-education for posture and balance. Therapeutic activities to return to functional activities of daily living. Electronically signed by: Chucky Gaona, PT Please sign and return to therapist. Thank you for your referral.
== END 2022-08-17 10:40 | disposition home or self-care (01) ==
LOC: HO.PTCHIC 09:00
PROVIDERS: PCP Internal Medicine; Visit Provider Internal Medicine
DX: M70.52 Other bursitis of knee, left knee (principal)
CPT/HCPCS: 97035; 97110; 97162

== ENCOUNTER → 2022-07-25 08:17 | Outpatient (BNVA) | payer MEDICARE, SELFPAY | PROVIDERS: PCP Internal Medicine; Visit Provider Nurse Practitioner Family | DX: K21.9 Gastro-esophageal reflux disease without esophagitis (principal); K58.2 Mixed irritable bowel syndrome | CPT/HCPCS: 99212 ==

== ENCOUNTER → 2022-09-12 08:47 | Outpatient (BNVA) | payer OTHER, SELFPAY | PROVIDERS: PCP Internal Medicine; Visit Provider Nurse Practitioner Family | DX: K21.9 Gastro-esophageal reflux disease without esophagitis (principal); K58.1 Irritable bowel syndrome with constipation; K59.01 Slow transit constipation; E11.9 Type 2 diabetes mellitus without complications; E78.00 Pure hypercholesterolemia, unspecified | CPT/HCPCS: 99212 ==

== ENCOUNTER 2022-10-26 11:03 | Outpatient (REF) | payer OTHER, SELFPAY ==
--- NOTE | ~2022-10-26 | XR_ITS ---
EXAMINATION: XR LEFT FOOT XR RIGHT CALCANEUS CLINICAL INDICATION: Chronic pain. TECHNIQUE: Right calcaneus 2 views and left foot 3 views. FINDINGS: Left foot: There is no visible fracture, dislocation or subluxation seen. The soft tissues are normal. The ankle mortise and subtalar joints are normal. There is small retrocalcaneal enthesophyte. XR/XR foot LT min 3V IMPRESSION: Small retrocalcaneal enthesophyte. No visible acute fracture, dislocation or subluxation seen.
--- NOTE | ~2022-10-26 | XR_ITS ---
EXAMINATION: XR LEFT FOOT XR RIGHT CALCANEUS CLINICAL INDICATION: Chronic pain. TECHNIQUE: Right calcaneus 2 views and left foot 3 views. FINDINGS: Left foot: There is no visible fracture, dislocation or subluxation seen. The soft tissues are normal. The ankle mortise and subtalar joints are normal. There is small retrocalcaneal enthesophyte. XR/XR calcaneus RT min 2V IMPRESSION: Small retrocalcaneal enthesophyte. No visible acute fracture, dislocation or subluxation seen.
== END 2022-10-26 11:04 | disposition home or self-care (01) ==
LOC: HO.XRAY 11:03
PROVIDERS: PCP Internal Medicine; Visit Provider Internal Medicine
DX: G89.29 Other chronic pain (principal); M79.672 Pain in left foot
CPT/HCPCS: 73630; 73650

== ENCOUNTER 2023-12-09 10:50 | Outpatient (REF) | payer OTHER, SELFPAY ==
[2023-12-09 11:58] LABS: Estimated Average Glucose 134 mg/dL; Hemoglobin A1c % 6.3 % (<6.0)
[2023-12-09 12:16] LABS: Creatinine Urine 115.82 mg/dL
[2023-12-09 12:18] LABS: Alanine Aminotransferase 50 U/L (0-31); Albumin Level 4.6 g/dL (3.5-5.0); Alkaline Phosphatase 85 U/L (39-117); Aspartate Amino Transferase 26 U/L (5-31); Bilirubin Direct 0.1 mg/dL (0.0-0.5); Bilirubin Total 0.5 mg/dL (0.0-1.0); Cholesterol 221 mg/dL (<200); HDL Cholesterol 57 mg/dL (>40); LDL Cholesterol Calculated 125 mg/dL (<100); Total Protein 7.8 g/dL (6.5-8.0); Triglycerides 198 mg/dL (<150)
[2023-12-09 12:43] LABS: Vitamin B12 311 pg/mL (200-900)
== END 2023-12-09 10:51 | disposition home or self-care (01) ==
LOC: HO.HHCL 10:50
PROVIDERS: Visit Provider Internal Medicine
DX: E11.9 Type 2 diabetes mellitus without complications (principal)
CPT/HCPCS: 36415; 80061; 80076; 82043; 82570; 82607; 83036

== ENCOUNTER 2024-05-07 08:21 | Outpatient (REF) | payer OTHER, SELFPAY ==
[2024-05-07 12:02] LABS: Alanine Aminotransferase 41 U/L (0-31); Albumin Level 4.4 g/dL (3.5-5.0); Alkaline Phosphatase 82 U/L (39-117); Aspartate Amino Transferase 34 U/L (5-31); Bilirubin Direct 0.3 mg/dL (0.0-0.5); Bilirubin Total 0.7 mg/dL (0.0-1.0); Cholesterol 128 mg/dL (<200); HDL Cholesterol 58 mg/dL (>40); LDL Cholesterol Calculated 54 mg/dL (<100); Total Protein 7.7 g/dL (6.5-8.0); Triglycerides 80 mg/dL (<150)
[2024-05-07 12:08] LABS: HBS Num1 0.69 mIU/mL (0-7.99); HBc Num1 0.12 S/CO (0.00-0.79); HBsAGNum1 0.29 S/CO (0.00-0.99); Hepatitis A Antibody IgM 0.18 Index (0-0.79); Hepatitis B Core Antibody Nonreactive (Nonreactive); Hepatitis B Surface Antigen Negative (Negative); ~HepC Num1 0.08 S/CO (0.00-0.79); ~Hepatitis A Antibody IgM Nonreactive (Nonreactive); ~Hepatitis B Surface Antibody NONREACTIVE (Nonreactive); ~Hepatitis C Antibody Nonreactive (Nonreactive)
[2024-05-07 12:29] LABS: Vitamin D 25-OH Total 40.2 ng/mL (>30)
[2024-05-07 12:50] LABS: Gamma Glutamyl Transpeptidase 44 U/L (7-33)
[2024-05-07 13:54] LABS: Reflex LDLD? No
== END 2024-05-07 08:22 | disposition home or self-care (01) ==
LOC: HO.HHCL 08:21
PROVIDERS: Visit Provider Internal Medicine
DX: R74.01 Elevation of levels of liver transaminase levels (principal); M17.11 Unilateral primary osteoarthritis, right knee; E78.00 Pure hypercholesterolemia, unspecified
CPT/HCPCS: 36415; 80061; 80076; 82306; 82977; 86704; 86706; 86709; 86803; 87340

== ENCOUNTER 2025-01-28 08:44 | Outpatient (REF) | payer OTHER, SELFPAY ==
--- NOTE | ~2025-01-28 | MM_ITS ---
EXAMINATION: MM SCREENING DIGITAL BREAST TOMOSYNTHESIS, BILATERAL CLINICAL INFORMATION: Screening. Asymptomatic. COMPARISON: Mammography: Comparison is made with available priors TECHNIQUE: Digital breast mammography with tomosynthesis is performed in both the craniocaudal and mediolateral oblique views along with computer-aided detection (CAD). FINDINGS: There are scattered areas of fibroglandular density (ACR BI-RADS breast composition Category b). Right marker clip. There are no significant masses, abnormal calcifications, or other abnormalities. MM/MM tomosynthesis screening BI IMPRESSION: No mammographic evidence of malignancy. ASSESSMENT: BI-RADS BI-RADS 2 - Benign Findings RECOMMENDATION: Routine annual mammography screening. 1 year F/U This examination should not preclude the clinical evaluation of a suspicious palpable abnormality. This patient's information was entered into a reminder system with a target due date for their next mammogram. Electronically signed by: Kerrie Nix DO 02/08/2025 02:12 PM EDT
--- OUTSIDE RECORDS SUMMARY | 2025-01-28 08:55 | XMS_ITS | Encounter Summary ---
Author Organization [employer] Address [address] [place] [address] [address] [place] [address] Care Team Providers Care Compactor Driver Name Role Phone Anne Marie Guillen MD Primary Care Provider + Camacho Benítez PharmD Unavailable [phone] Reason for Visit * Reason Comments Med Refill Encounter Details Date Type Department Care Team ([facility] st Contact Info) Description 01/27/2024 Refill [facility] MEDICINE [address] [place], [place] [phone] Anne Marie Guillen MD [address] [place], [place] [phone] Essential (primary) hypertension Social History Tobacco Use Types Packs/Day Years Used Date Smoking Tobacco: Never Passive Smoke Exposure: Never Smokeless Tobacco: Never Alcohol Use Standard Drinks/Week Comments Never 0 (1 standard drink = 0.6 oz pur e alcohol) Depression Answer Date Recorded Patient Health Questionnaire-9 Score 13 12/09/2023 Patient Health Questionnaire-9 Score 13 12/09/2023 Last PHQ-9: Questionnaire Data Not on file 0 12/09/2023 Housing Stability Answer Date Recorded What is your housing situation today? I have jeana angela 11/29/[address] you li ve. Do you have problems with any of the following? None of the above 11/29/2023 Food Insecurity Answer Date Recorded Within the past 12 months, y ou worried that your food would run out before you got money to buy more: Never True 11/29/2023 Within the past 12 months,th e food you bought just didn't last and you didn't have enough money to get more: Never True Transportation Answer Date Recorded In the past 12 months, has l ack of transportation kept you from medical appts, meetings, work or from getting things needed for daily living? No 11/29/2023 Utilities Answer Date Recorded In the past 12 months, has t he electric, gas, oil or water company threatened to shut off services in your home? No 11/29/2023 Depression Answer Date Recorded Patient Health Questionnaire-2 Score 2 12/09/2023 Comments No Sex and Gender Information Value Date Recorded Sex Assigned at Female 04/30/2022 10:34 AM EDT Legal Sex Female 10:34 AM EDT Gender Identity Female 04/30/2022 10:34 AM EDT Sexual Orientation Straight 04/30/2022 10 :34 AM EDT documented as of this encounter Plan of Treatment Not on file documented as of this encounter Goals Goal Patient Goal Type Associated Problems Recent Progress Patient-Stated? Author Blood Pressure < 140/90 Blood Pressure 136/88(2024 9:56 AM EDT) No Camacho Benítez, [place] Hemoglobin A1c < 7 Result Component 5.2( 10:01 AM EDT) No Camacho Benítez PharmD documented as of this encounter Visit Diagnoses Diagnosis Essential (primary) hypertension Unspecified essential hypertension documented in this encounter Additional Health Concerns Assessment Noted Time PHQ-9 Depression Total Score: 13 024 10:52 AM EDT documented as of this encounter Care Teams Compactor Driver Relationship Specialty Start Date End Date Anne Marie Guillen MD [address] [place] [address] PCP - General Family Medicine 07/24/18 Camacho Benítez PharmD [address] [place] [address] Pharmacist Internal Medicine 05/09/23 documented as of this encounter
== END 2025-01-28 08:45 | disposition home or self-care (01) ==
LOC: HO.MAMMO 08:44
PROVIDERS: Visit Provider Internal Medicine
DX: Z12.31 Encounter for screening mammogram for malignant neoplasm of breast (principal)
CPT/HCPCS: 77063; 77067

== ENCOUNTER → 2025-01-28 09:00 | Outpatient (BNV) | payer OTHER, SELFPAY | PROVIDERS: Visit Provider Internal Medicine | DX: Z12.31 Encounter for screening mammogram for malignant neoplasm of breast (principal) | CPT/HCPCS: 77063; 77067 ==